=== PATIENT | male | born 1955 | race Caucasian/White ===

== ENCOUNTER 2016-11-03 12:27 | Emergency (ER) | payer OTHER ==
[~2016-11-03] VITALS: Ht 175.3 cm; Wt 74.8 kg
[2016-11-03 14:20] LABS: ABSOLUTE BASOPHIL COUNT 0 /CUMM (0.0-0.2); ABSOLUTE EOSINOPHIL COUNT 0 /CUMM (0.0-0.7); ABSOLUTE GRANULOCYTE CT 10.2 /CUMM (1.4-6.5); ABSOLUTE LYMPH COUNT 0.3 /CUMM (1.2-3.4); ABSOLUTE MONOCYTE COUNT 0.3 /CUMM (0.10-0.60); BASOPHIL % 0.1 % (0.0-2.0); EOSINOPHIL % 0 % (0-5); HEMATOCRIT 43.3 % (42-52); MEAN CORPUSCULAR HGB 33.5 PG (27.0-31.0); MEAN CORPUSCULAR HGB CONC 33.7 G/DL (33.0-37.0); MEAN CORPUSCULAR VOLUME 99.5 FL (80.0-94.0); PLATELET COUNT 223 /CUMM (130-400); RBC DISTRIBUTION WIDTH 12.7 % (11.5-14.5); RED BLOOD CELL CT 4.35 /CUMM (4.70-6.10); WHITE BLOOD CELL COUNT 10.8 /CUMM (4.8-10.8)
[2016-11-03 14:41] LABS: GRANULOCYTE % 94.7 % (42.2-75.2)
--- NOTE | 2016-11-03 14:41 | ED GI/GU/ABDOMINAL COMPLAINT ---
History of Present Illness General Chief Complaint: Abdominal Pain/Flank Pain Stated Complaint: ABD/BACK PAIN HX OF KIDNEY STONES Source: patient, family, old records Exam Limitations: no limitations Allergies Coded Allergies: Sulfa (Sulfonamide Antibiotics) (UNKNOWN 11/03/16) Reconcile Medications Ketorolac Tromethamine 10 MG TABLET 1 TAB PO Q6P PRN KIDNEY STONE PT GIVEN IV TORADOL IN ED. Oxycodone HCl/Acetaminophen (Percocet 5-325 MG Tablet) 5 MG-325 MG TABLET 1-2 TAB PO Q6P PRN pain Tamsulosin HCl (Flomax) 0.4 MG CAP.ER.24H 1 CAP PO DAILY KIDNEY STONE Triage Note: PT TO ED C/O RIGHT FLANK PAIN RADIATING TO GROIN. STARTED THIS AM. H/O KIDNEY STONES, STATES FEELS THE SAME. C/O N/V. Triage Nurses Notes Reviewed? yes HPI: This is a 61 yo male with CC of nephrolithiasis who comes in with R. sided flank pain. He states that at 8am this morning he had experienced sudden onset r. flank pain that radiated to his groin. He states that he has had several episodes of nephrolithiasis and has seen in the past. Most recent episode 3 yrs back. He has never required intervention for passage of stones. He states that composition is usually dayna ox. Pt does endorse change in diet recently; he has been following a high protein diet with up to 50-60 g of protein via whey protein shakes. Pt describes pain as 10/10 at this time. He also endorses an inability to urinate despite feeling the urge. He is unsure if inability stems from pain. He denies any (MAUREEN CRUZ,[facility]) Vital Signs & Intake/Output Vital Signs & Intake/Output Vital Signs Date Time Temp Pulse Resp B/P Pulse O2 O2 Flow FiO2 Ox Delivery Rate 11/03 1547 97.7 74 16 140/83 96 Room Air 11/03 1520 70 18 143/91 98 Room Air 11/03 1506 99 Room Air 11/03 1236 96.0 72 20 163/91 100 Room Air Past History Travel History Traveled to [place] past 21 day No Medical History Any Pertinent Medical History? see below for history Renal: nephrolithiasis Surgical History Surgical History: non-contributory Psychosocial History What is your primary language Slovenian Tobacco Use: Quit >30 days ago ETOH Use: denies use Illicit Drug Use: denies illicit drug use Family History Hx Contributory? No (MIAN REDDY MD) Review of Systems Review of Systems Constitutional: Denies: chills, diaphoresis, fever, malaise, weakness. EENTM: Reports: no symptoms. Respiratory: Reports: no symptoms. Cardiovascular: Reports: no symptoms. GI: Reports: no symptoms. Genitourinary: Reports: hesitation, pain. Denies: dysuria, frequency, hematuria, nocturia, urgency. Musculoskeletal: Reports: back pain. Skin: Reports: no symptoms. (MIAN REDDY MD) Physical Exam Physical Exam General Appearance: well developed/nourished, no apparent distress, alert, awake , mild distress Head: atraumatic Eyes: Bilateral: normal appearance. Ears, Nose, Throat, Mouth: hearing grossly normal Neck: supple Respiratory: normal breath sounds, chest non-tender, no respiratory distress Cardiovascular: regular rate/rhythm Gastrointestinal: soft, patient has mild tenderness to palpation in right flank area. Neck edition he endorses tenderness and right lower quadrant. Back: no vertebral tenderness, no CVA tenderness Extremities: normal range of motion Core Measures ACS in differential dx? No Severe Sepsis Present: No Septic Shock Present: No (MAUREEN CRUZ,MIAN) Progress Differential Diagnosis: pyelonephritis, ureterolithiasis, urinary retention, UTI /pyelo, nephrolothiasis Diagnostic Imaging: Viewed by Me: CT Scan. Initial ED EKG: none (MIAN REDDY MD) Plan of Care: Orders Procedure Date/time Status COMPREHENSIVE METABOLIC PANEL 11/03 1407 Complete CBC WITHOUT DIFFERENTIAL 11/03 1407 Complete URINALYSIS 11/03 1239 Complete Laboratory Tests 11/03/16 1501: Urine Color YEL, Urine Clarity HAZY H, Urine pH 6.0, Ur Specific [place] 1.025, Urine Protein TRACE H, Urine Ketones >=80, Urine Nitrite NEG, Urine Bilirubin NEG, Urine Urobilinogen 0.2, Ur Leukocyte Esterase NEG, Ur Microscopic SEDIMENT EXAMINED, Urine RBC >75 H, Urine WBC RARE, Ur Epithelial Cells RARE, Urine Crystals RARE CA OX, Urine Mucus RARE, Urine Hemoglobin LARGE H, Urine Glucose NEG 11/03/16 1407: Anion Gap 12, Estimated GFR > 60, BUN/Creatinine Ratio 15.0, Glucose 125 H, Calcium 9.6, Total Bilirubin 4.0 H, AST 29, ALT 36, Alkaline Phosphatase 50, Total Protein 6.9, Albumin 4.4, Globulin 2.5, Albumin/Globulin Ratio 1.8, CBC w Diff NO MAN DIFF REQ, RBC 4.35 L, MCV 99.5 H, MCH 33.5 H, RDW 12.7, MPV 8.0, Gran % 94.7 H, Lymphocytes % 2.9 L, Monocytes % 2.3, Eosinophils % 0, Basophils % 0.1, Absolute Granulocytes 10.2 H, Absolute Lymphocytes 0.3 L, Absolute Monocytes 0.3, Absolute Eosinophils 0, Absolute Basophils 0, PUBS MCHC 33.7 Comments: Patient's case discussed with who recommends Flomax, pain control, hydration and follow-up in his office for shock wave lithotripsy. (KAYODE CRUZ,RHYS Gonzales) Departure Departure Condition: Stable Clinical Impression Primary Impression: Nephrolithiasis Departure Forms: Customer Survey General Discharge Information (MAUREEN CRUZ,MIAN) Departure Disposition: HOME OR SELF CARE Referrals: KIARA MARTÍNEZ MD (PCP/Family) BLAZE RIVERA MD Additional Instructions: Toradol as needed for pain. Add Percocet if necessary. Flomax as prescribed to help pass the stone. Maintain a good fluid intake. Miguel's office tomorrow at 8:00 to arrange for a follow-up appointment for lithotripsy. Notify your primary care doctor of this emergency department visit and treatment plan. Return if any concerns or sudden worsening. Please note that there might be incidental findings in your evaluation that are unrelated to the current emergency department visit. Please notify your primary care doctor about this emergency department visit in order to obtain and review all of the testing performed so that these incidental findings can be monitored as needed. If you had an x-ray performed, please understand that some fractures may not be seen on the initial set of x-rays. If your symptoms persist you might need a repeat set of x-rays to check for such a fracture. If you had a laceration evaluated, please understand that foreign bodies such as glass or wood may not be visible to the naked eye or on plain x-rays. If the wound becomes red, swollen, increasingly more painful or if there is any drainage from the wound, please have it reevaluated by a physician for the possibility of a retained foreign body. Thank you for choosing the [facility] Emergency Department for your care. It was a pleasure to serve you today. Rhys Maloney M.D. [facility] Prescriptions: Current Visit Scripts Ketorolac Tromethamine 1 TAB PO Q6P PRN KIDNEY STONE #16 TAB PT GIVEN IV TORADOL IN ED. Oxycodone HCl/Acetaminophen (Percocet 5-325 MG Tablet) 1-2 TAB PO Q6P PRN pain #20 TAB Tamsulosin HCl (Flomax) 1 CAP PO DAILY #7 CAP Resident Co-Sign Statement Statement: ED Attending supervision documentation- [x] I saw and evaluated the patient. I have also reviewed all the pertinent lab results and diagnostic results. I agree with the findings and the plan of care as documented in the Resident's documentation. [] I have reviewed the ED Record and agree with the Resident's documentation. [] Additions or exceptions (if any) to the Resident's note and plan are summarized below: [] (KAYODE CRUZ,RHYS Gonzales) Critical Care Note Critical Care Note Critical Care Time: 30-74 min (KAYODE CRUZ,RHYS Gonzales)
--- NOTE | 2016-11-03 15:12 | CT SCAN REPORT ---
EXAMINATION: CT ABDOMEN AND PELVIS WITHOUT CONTRAST CLINICAL INFORMATION: Renal colic with nephrolithiasis. Right-sided flank pain. COMPARISON: Report of small bowel series January 2006. TECHNIQUE: Multidetector volumetric imaging was performed from the superior aspect of the liver through the pubic symphysis. Sagittal and coronal reformatted images were obtained on the technologist's workstation. DLP: 289 mGy-cm FINDINGS: LUNG BASES: The visualized lung bases are unremarkable. LIVER, GALLBLADDER, AND BILIARY TREE: The liver is normal in size, shape, and attenuation. No focal hepatic lesion or biliary ductal dilatation is present. The gallbladder is unremarkable with no evidence of radiopaque gallstones, gallbladder wall thickening, or obvious pericholecystic inflammatory changes. PANCREAS: Unremarkable. SPLEEN: Unremarkable. ADRENAL GLANDS: Unremarkable. KIDNEYS AND URETERS: There is a 5 mm distal ureteral calculus at the ureterovesical junction on the right resulting in mild dilatation of the collecting system proximal to the stone indicative of partial obstruction. There is perinephric stranding related to this. There are 2 additional 1 mm nonobstructing calculi in the lower pole of the right kidney. There are several nonobstructing stones in the left kidney, largest measuring 5 mm in the mid portion of the kidney, with at least 2 smaller nonobstructing calculi in the lower pole. There is a 2 cm simple cyst in the upper pole of the left kidney. BLADDER: Other than the stone noted above at the UV junction, unremarkable. GASTROINTESTINAL TRACT: Appendix not visualized, however, no inflammatory changes in the right lower quadrant. Large bowel unremarkable. Small bowel normal. STOMACH: Normal. PERITONEAL CAVITY: Question trace ascites. ABDOMINAL WALL: No significant hernia is appreciated. LYMPH NODES: Normal. VASCULAR: Avlu-ue-uitmtjuh arterial calcification throughout. PELVIC VISCERA: Unremarkable. OSSEOUS STRUCTURES: Multilevel spondylosis of the lumbosacral spine with twrk-pr-gkdloltg degenerative disc changes present at the L1-L2 and L2-L3 levels. Bilateral pars defects at L5 with resultant grade 1 anterolisthesis of L5 on S1. IMPRESSION: 5 mm partially obstructing distal right ureteral calculus at the UV junction. Additional small nonobstructing calculi in both kidneys. Multilevel spondylosis of the lumbosacral spine with bilateral pars defects and grade 1 anterolisthesis at L5-S1.
[2016-11-03 15:47] VITALS: BP 140/83
[2016-11-03] MEDS ORDERED: FLOMAX0.4 M1 PO (16:03)
[2016-11-03] MEDS ORDERED: KETOROLAC TROME10 M1 PO (16:03)
[2016-11-03] MEDS ORDERED: PERCOCET 5-3251 EACH PO (16:03)
== END 2016-11-03 16:24 ==
LOC: ERH 12:27
PROVIDERS: Emergency Medicine
DX: N20.0 Calculus of kidney (principal)
CPT/HCPCS: 74176; 81001; 96374; 96375; J1885; J2405

== ENCOUNTER → 2016-11-04 | Day surgery (SDC) | payer OTHER ==
[~2016-11-04] VITALS: Ht 175.3 cm; Wt 74.8 kg
[~2016-11-04] MED LIST: FLOMAX0.4 M1 PO; KETOROLAC TROME10 M1 PO; PERCOCET 5-3251 EACH PO
--- NOTE | 2016-11-04 13:51 | Cons- Urology ---
General Information and HPI Consulting Request Date of Consult: 11/03/16 Requested By: Miryam GRANDE GREGORY-E.D. Reason for Consult: RIGHT HYDRO WITH URETER STONE Source of Information: patient, old records Exam Limitations: no limitations History of Present Illness: 61 YEAR OLD WITH KNOWN STONE: PRESENTS TO ER WITH SEVERE COLIC. CT DONE, REVIEWED AND DISCUSSED WITH PT. PLAN; RIGHT STENT AND ESWL. Allergies/Medications Allergies: Coded Allergies: Sulfa (Sulfonamide Antibiotics) (UNKNOWN 11/03/16) Uncoded Allergies: SULFITES (11/04/16) Home Med List: Ketorolac Tromethamine 10 MG TABLET 1 TAB PO Q6P PRN KIDNEY STONE PT GIVEN IV TORADOL IN ED. Oxycodone HCl/Acetaminophen (Percocet 5-325 MG Tablet) 5 MG-325 MG TABLET 1-2 TAB PO Q6P PRN pain Tamsulosin HCl (Flomax) 0.4 MG CAP.ER.24H 1 CAP PO DAILY KIDNEY STONE Past History Medical History Blood Transfusion Hx: No Renal: nephrolithiasis Surgical History Pertinent Surgical History: non-contributory Psychosocial History Where Do You Live? Home Who Do You Live With? spouse Services at Home: None Employment History Retired? no Review of Systems Review of Systems Constitutional: Denies: no symptoms. EENTM: Denies: no symptoms. Cardiovascular: Denies: no symptoms. Respiratory: Denies: no symptoms. GI: Reports: bloating. Skin: Denies: no symptoms. Exam & Diagnostic Data Vital Signs and I&O Intake & Output 11/04 1600 11/04 0800 / 0000 11/03 1600 11/03 0800 11/03 0000 Intake Total Output Total Balance Patient 165 lb Weight Physical Exam General Appearance: well developed/nourished, no apparent distress Head: atraumatic Eyes: Bilateral: normal appearance. Respiratory: normal breath sounds Cardiovascular: regular rate/rhythm Gastrointestinal: normal bowel sounds Back: CVA tenderness (R) Extremities: normal inspection Reproductive: Normal male genitalia Imaging Results: PATIENT: YOAV TOLENTINO PRESENT AGE: 61 PATIENT ACCOUNT NO: [id number] : 59 LOCATION: [facility] ORDERING PHYSICIAN: MIAN REDDY MD SERVICE DATE: 11/03/16-1430 EXAM TYPE: CAT - CT ABD & PELVIS W/O IV CONTRAS EXAMINATION: CT ABDOMEN AND PELVIS WITHOUT CONTRAST CLINICAL INFORMATION: Renal colic with nephrolithiasis. Right-sided flank pain. COMPARISON: Report of small bowel series January 2006. TECHNIQUE: Multidetector volumetric imaging was performed from the superior aspect of the liver through the pubic symphysis. Sagittal and coronal reformatted images were obtained on the technologist's workstation. DLP: 289 mGy-cm FINDINGS: LUNG BASES: The visualized lung bases are unremarkable. LIVER, GALLBLADDER, AND BILIARY TREE: The liver is normal in size, shape, and attenuation. No focal hepatic lesion or biliary ductal dilatation is present. The gallbladder is unremarkable with no evidence of radiopaque gallstones, gallbladder wall thickening, or obvious pericholecystic inflammatory changes. PANCREAS: Unremarkable. SPLEEN: Unremarkable. ADRENAL GLANDS: Unremarkable. KIDNEYS AND URETERS: There is a 5 mm distal ureteral calculus at the ureterovesical junction on the right resulting in mild dilatation of the collecting system proximal to the stone indicative of partial obstruction. There is perinephric stranding related to this. There are 2 additional 1 mm nonobstructing calculi in the lower pole of the right kidney. There are several nonobstructing stones in the left kidney, largest measuring 5 mm in the mid portion of the kidney, with at least 2 smaller nonobstructing calculi in the lower pole. There is a 2 cm simple cyst in the upper pole of the left kidney. BLADDER: Other than the stone noted above at the UV junction, unremarkable. GASTROINTESTINAL TRACT: Appendix not visualized, however, no inflammatory changes in the right lower quadrant. Large bowel unremarkable. Small bowel normal. STOMACH: Normal. PERITONEAL CAVITY: Question trace ascites. ABDOMINAL WALL: No significant hernia is appreciated. LYMPH NODES: Normal. VASCULAR: Thnx-nl-osmwzpho arterial calcification throughout. PELVIC VISCERA: Unremarkable. OSSEOUS STRUCTURES: Multilevel spondylosis of the lumbosacral spine with doft-xn-joycvfde degenerative disc changes present at the L1-L2 and L2-L3 levels. Bilateral pars defects at L5 with resultant grade 1 anterolisthesis of L5 on S1. IMPRESSION: 5 mm partially obstructing distal right ureteral calculus at the UV junction. Additional small nonobstructing calculi in both kidneys. Multilevel spondylosis of the lumbosacral spine with bilateral pars defects and grade 1 anterolisthesis at L5-S1. Assessment/Plan Assessment/Plan RIGHT URETER STONE OBSTRUCTING: RIGHT ESWL AND STENT Other Findings/Comments: X Copies To: ESSENCE CRUZ,BLAZE Consult Acknowledgment - Thank you for your consult request. Attending MD Review Statement Attending Statement Attending MD Statement: examined this patient Attending Assessment/Plan: RIGHT STENT; RIGHT UVJ ESWL.
--- NOTE | 2016-11-07 08:06 | Operative Report ---
Operative/Inv Procedure Report Surgery Date: 11/04/16 Name of Procedure: cystoscopy: right ureter ESWL. fluoroscopy Pre-Operative Diagnosis: rigth ureter obstructing stone. Post-Operative Diagnosis: same Estimated Blood Loss: scant Surgeon/Extruder: BLAZE LOWRY MD Anesthesia: laryngeal mask airway Complications: none Operative/Procedure Note Note: The patient was taken to the operating room and placed on the ESWL table in supine position. Time out was performed, with the patient awake, to confirm identity, procedure, laterality, and other pertinent gabe-operative information. After adequate anesthesia, the patient was positioned so that the right flank was placed over the ESWL table cut-out, and overlying the dome of the shockwave generator. C-arm fluroscopy, as well as renal US was used to locate the stone, and evaluate the right kidney. The stone was faintly visible on fluroloscopy at the right mid-ureter. Renal US confirmed mild hydronephrosis with no additional stone seen in the right kidney. The right ureter stone was approximate 8 mm in size and faintly visible with fluoroscopy. Using the C-Arm fluoroscopy in an A- P, and Oblique view, the position of the ureter stone was optimized at the center of the crosshairs. At this point, E.S.W.L. was initiated at low power levels x 200 shocks. After noting the patient's tolerance to the shockwaves, the shockwave power level was quickly maximized. At the end of the procedure, the composition of the stone had changed significantly indicating the pulverization of the ureter stone. A total of 3000 shockwaves were delivered to the stone in order to achieve adequate lithotrypsy. Once the ESWL concluded, the pt. was repositioned in frog-legged position, draped and prepped in the usual surgical fashion. A 22 Macanese cystoscope sheath with a 30 angle lens was then inserted into the bladder. The bladder was thoroughly and systematically surveyed revealing no tumor no stone. Both ureteral orifices were in their orthotopic position. The right orifice was identified and using a 8 Macanese cone-tipped catheter, retrograde pyelogram was performed. Right-sided hydronephrosis with slow edge of contrast material was noted on the right side. At this point decided to place a stent. The right orifice was intubated with a 0.035 Glidewire and advanced into the right renal pelvis without difficulty. Guidewire and a 6 x 22 Bard double-J stent was inserted with fluoroscopic visualization. With the proximal coil visualized in the right renal pelvis, and the distal coil seen in the bladder, the Glidewire was removed. The stent remained in proper place. The cystoscope was then removed after draining the bladder. The patient tolerated the procedures well, was awakened, and taken to recovery in satisfactory condition via stretcher. The pt will be dischared to home with pain meds, diet orders, and intructions to catch fragments with straining the urine. The patient is to have follow-up renal ultrasound and KUB within 1-2 weeks and f/u in the office after discharge. Discharge Disposition: PACU CC: BLAZE LOWRY MD
== END ==
LOC: STS 07:00
DX: N13.2 Hydronephrosis with renal and ureteral calculous obstruction (principal)
CPT/HCPCS: C2617; J2250

== ENCOUNTER → 2016-11-13 | Day surgery (SDC) | payer OTHER ==
[~2016-11-13] VITALS: Ht 175.3 cm; Wt 74.8 kg
--- NOTE | 2016-11-13 10:52 | RADIOLOGY REPORT ---
EXAMINATION: Intraoperative fluoroscopy CLINICAL INFORMATION: Right stent removal, ureteroscopy and lithotripsy performed in the operating room. COMPARISON: CT abdomen pelvis 11/03/2016 TECHNIQUE: Intraoperative fluoroscopy was provided for use by . A total of 6 images were saved to PACS. TOTAL FLUOROSCOPIC TIME: 37 seconds. FINDINGS: Initial images demonstrate catheter within the distal right ureter and opacification of the right ureter. Images also demonstrate catheter advanced into the renal pelvis and opacification of the right renal pelvis. IMPRESSION: Intraoperative fluoroscopy provided for use by . Please see operative note for detailed findings.
--- NOTE | 2016-11-13 14:58 | Operative Report ---
Operative/Inv Procedure Report Surgery Date: 11/13/16 Name of Procedure: cysto: right stent removal, right flexible ureteroscopy, laser lithotrypsy of right renal stone. Pre-Operative Diagnosis: right stent intolerance, right renal stone. Post-Operative Diagnosis: same Estimated Blood Loss: less than 50ml Surgeon/Manager Grocery: BLAZE LOWRY MD Anesthesia: laryngeal mask airway Specimens: right renal stone fragment Operative/Procedure Note Note: The patient was taken to the operating room and placed on the OR table in supine position. Timeout was performed, with the patient awake, in order to confirm correct patient, procedure, laterality, anesthesia, and other pertinent information. After adequate anesthesia and antibiotics, the patient was then placed in lithotomy stirrups, draped and prepped in the usual surgical fashion. A 22 Scottish cystoscope sheath with 30 angle lens was inserted into the bladder without difficulty. Upon entering the bladder, the bladder was noted to be free of stone. Both ureteral orifices were in their orthotopic position, with clear efflux bilaterally. The stent was visible protruding from right ureteral orifice. The right stent was grasped with alligator forceps and the cystoscope along with entire stent was removed. The 22 Scottish cystoscope was then reinserted under direct visualization into the bladder. The right ureter orifice was intubated with an 8fr cone-tip catheter and a retrograde pyelogram with fluoroscopy was performed revealing the rightl LP 5mm stone. The cone-tipped catheter was removed, followed by insertion of a 0.035 Glidewire, which was advanced into the right renal pelvis without difficulty. Correct placement was confirmed on fluoroscopy. The cystoscope was removed, leaving the Glidewire in place. Using the gluidewire as a guide, a flexible digital ureteroscope, was advanced over the gluidewire into the right ureter at the level of the obstructing stone. The Glidewire was removed, and the 200um fiber was insterted into the ureteroscope. With the laser fiber in direct contact with the 5 mm stone at the LP and the laser lithotripsy was performed in order to pulverize the stone into multiple tiny fragments. After performing Calyxoscopy, pyeloscopy, and finding no further stones or tumor, the flexible uretersocope was removed slowly. This revealed no tumor, and no stone along the entire length of the ureter. The bladder was then drained after the ureteroscope was removed. The patient tolerated the procedure well was then taken to the recovery room in satisfactory condition. The patient is to follow up in 1-2 weeks for POC/follow-up.
== END ==
LOC: STS 01:20
DX: N20.0 Calculus of kidney (principal)
CPT/HCPCS: 74020; 82355; J2250